=== PATIENT | female | born 2000 | race Caucasian/White ===

== ENCOUNTER 2019-10-11 12:27 | Emergency (ER) | payer OTHER ==
[2019-10-11] MEDS ORDERED: ACETAMINOPHEN 500 MG TABLET (FP) PO ONE (13:01)
[2019-10-11 13:06] VITALS: BP 108/69; PULSE 98; TEMP 98.8; BMI 25.0
[2019-10-11] MEDS ORDERED: ACETAMINOPHEN 500 MG TABLET (FP) ONE (13:07)
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
== END 2019-10-11 15:01 | disposition home or self-care (01) ==
LOC: FER 12:27
DX: S13.4XXA Sprain of ligaments of cervical spine, initial encounter (principal); V49.9XXA Car occupant (driver) (passenger) injured in unspecified traffic accident, initial encounter; Y93.89 Activity, other specified; Y92.410 Unspecified street and highway as the place of occurrence of the external cause; Z88.0 Allergy status to penicillin; Z88.8 Allergy status to other drugs, medicaments and biological substances; Z91.018 Allergy to other foods
CPT/HCPCS: 70450-TC; 70486-TC; 99282-25